=== PATIENT | female | born 1990 | race Caucasian/White ===

== ENCOUNTER 2019-03-24 16:34 | Emergency (ER) | payer OTHER ==
[~2019-03-24] VITALS: Ht 152.4 cm; Wt 51.3 kg
[2019-03-24 16:50] VITALS: BP 119/66
--- NOTE | 2019-03-24 17:20 | NUR ---
28F C/O BUG BITE X2 DAYS TO R UPPER AND LOWER LEG. PT REPORTS INCREASE IN PAIN RATED 6/10. TOOK BENADRYL AND LOTIONS WITH NO RELIEF. SMALL AREA OF ERYTHEMA TO RIGHT SCHWARZ. LARGER AREA OF ERYTHEMA AND EDEMA TO RIGHT LATERAL UPPER LEG. NO OPEN SKIN. ALSO STATES SOME "TWITCHING" TO BL LEGS AND ARMS. DENIES NUMB,TINGLING. DENIES FEVER, CHILLS. STATES SHE RUNS OUTDOORS OFTEN. DOES NOT KNOW WHAT BUG. HX- ENDOMETRIOSIS NKA Addendum: 03/24/19 at 1829 by CARO REAL TIME [id number] COMPLETE ASSESSMENT
--- NOTE | 2019-03-24 17:30 | NUR ---
PATIENT AMBULATED TO ER BED 1.
[2019-03-24 18:40] VITALS: BP 110/68
--- NOTE | 2019-03-24 18:40 | NUR ---
Patient discharged with v/s stable. Written and verbal after care instructions given and explained. Patient verbalized understanding. Ambulatory with steady gait. All questions addressed prior to discharge. Advised to follow up with PMD.
== END 2019-03-24 18:40 | disposition home or self-care (01) ==
LOC: MED 16:34
DX: S80.861A Insect bite (nonvenomous), right lower leg, initial encounter (principal); W57.XXXA Bitten or stung by nonvenomous insect and other nonvenomous arthropods, initial encounter; Y93.89 Activity, other specified; Y92.89 Other specified places as the place of occurrence of the external cause; Y99.8 Other external cause status
CPT/HCPCS: 99283